=== PATIENT | male | born 1940 | race Caucasian/White ===

== ENCOUNTER → 2021-08-22 | Day surgery (SDC) | payer MEDICARE, OTHER ==
[~2021-08-22] MED LIST: ADULT ASPIRIN R81 MG PO; ALPHA LIPOIC AC50 M1 PO; BYSTOLIC10 MG PO; COQ-10100 MG PO; DHEA25 MG PO; ENDUR-ACIN500 MG PO; KLOR-CON 1010 MEQ PO; MAGNESIUM250 M1 PO; PERIDEX15 ML SWISH&SPIT; VISION VITAMIN1 EACH PO; VITAMIN D-40010 MCG PO; [UNRECOGNIZED DRUG - CODE] PO; [UNRECOGNIZED DRUG - OTHER] PO; [UNRECOGNIZED DRUG - OTHER] PO; [UNRECOGNIZED DRUG - OTHER] PO; [UNRECOGNIZED DRUG - OTHER] PO
--- NOTE | ~2021-08-22 | PROC ---
[address] [address] PROCEDURE REPORT Name: SALLY STREETER Room: [facility].#: [id number] Admission: 08/22/21 Attend Phys: Herbie Kirk DO Discharge: Date of : 40 Report #: [id number] THIS REPORT FOR: cc: DEAN CASTELLANOS MD Physician not on staff [facility],Medical Records Staff ~ For GI report, please see the Provation report in Perceptive 7 content. By: 0651Medical Records Staff JUSTIN /JOSELITO
[2021-08-22 09:21] LABS: HEMATOCRIT 43.8 % (42.0-52.0); HEMOGLOBIN 15.4 gm/dL (14.0-18.0); MCH 34.6 pg (26.0-34.0); MCHC 35.1 g/dL (28.0-37.0); MCV 98.7 fL (80.0-100.0); MPV 7.2 fl. (7.2-11.1); RBC 4.44 mil/uL (4.50-6.00); RDW-CV 12.9 % (10.5-14.5); WBC 4.6 thou/uL (4.0-11.0)
[2021-08-22 09:30] LABS: ANION GAP < 0 mmol/L (7-16); BUN 12 mg/dL (7-18); CALCIUM 9.4 mg/dL (8.5-10.1); CHLORIDE 99 mmol/L (98-107); CO2 28 mmol/L (21-32); GLUCOSE 95 mg/dL (70-99); POTASSIUM 3.7 mmol/L (3.5-5.1); SODIUM 126 mmol/L (136-145)
--- NOTE | 2021-08-22 12:26 | EKG ---
[place] [address] ELECTROCARDIOGRAM REPORT Name: SALLY STREETER Room: [facility]#: [id number] Admission: 08/22/21 Attend Phys: Herbie Kirk, Discharge: Date of : 40 Date of Service: 08/22/21930 Report #: [id number] THIS REPORT FOR: //name// [facility] Test Date: 2021-08-22 Test Time: 09:31:57 Pat Name: SALLY STREETER Department: Room: Gender: Flight Kitchen Manager: [facility] : 1940 Requested By: Amita Butt Order Number: [id number] Reading MD: Sally Cornejo Measurements Intervals [place] Rate: 63 P: [place]: QRS: -13 QRSD: 109 T: 30 QT: 398 QTc: 408 Interpretive Statements Atrial fibrillation Inferior infarct, old No previous ECG available for comparison Electronically Signed On 08-22-2021 12:26:12 CDT by Sally Cornejo [email or web address] <ELECTRONICALLY SIGNED> By: Sally Cornejo MD, [facility] 08/22/21 1226 0 0 Sally Cornejo MD, [facility] /EPI
--- NOTE | 2021-08-25 11:08 | PATH ---
[facility] [address] [place] [address] PATHOLOGY RPT PROCEDURE Name: SALLY STREETER MOIZ Room: [facility].#: [id number] Admission: 08/22/21 Date of : 40 Discharge: Report #: [id number] Path Case #: [id number] [facility] Accession Number: [id number] . 01 Material submitted: . PART A: cecum - CECAL POLYP PART B: colon - PROXIMAL TRANSVERSE COLON POLYP. Modifiers: proximal, transverse PART C: rectum - RECTAL POLYP . 01 Clinical history: . HISTORY OF COLON POLYPS . 02 Diagnosis: A. Cecal polyp: - Tubular adenoma, negative for high-grade dysplasia. . B. Proximal transverse colon polyp: - Tubular adenoma, negative for high-grade dysplasia. . C. Rectal polyp: - Tubular adenoma, negative for high-grade dysplasia. . (HILARIO:tom; 08/24/2021) [facility] 08/24/2021 1544 Local . 02 Electronically signed: . Juan C Dexter MD, Pathologist NPI- [id number] . 01 Gross description: . A. The specimen is received in formalin, labeled "Sally Streeter, cecal polyp". Received is a segment of pale rick tissue measuring 0.3 cm in maximum dimensions. The specimen is submitted entirely in cassette A1. . B. The specimen is received in formalin, labeled "Sally Streeter, proximal transverse colon polyp". Received are 2 segments of pale rick tissue ranging in size from 0.2 cm to 0.3 cm in maximum dimensions. The specimen is submitted entirely in cassette B1. . C. The specimen is received in formalin, labeled "Sally Streeter, rectal polyp". Received are 2 segments of pale rick tissue ranging in size from 0.2 to 0.4 cm in maximum dimensions. The specimen is submitted entirely in cassette C1.([facility]; 08/23/2021) [facility] 08/23/2021 Critical access hospital Local . 02 Pathologist provided ICD-10: D12.0, D12.3, D12.8 [place] [address] PATHOLOGY RPT PROCEDURE Name: SALLY STREETER Room: [facility]..#: [id number] Admission: 08/22/21 Date of : 40 Discharge: Report #: [id number] Path Case #: [id number] . 02 [facility] . [id number], [id number], [id number] Specimen Comment: A courtesy copy of this report has been sent to [phone], [phone] Specimen Comment: [phone] Specimen Comment: Report sent to / DR CASTELLANOS Performed at: [address] [facility] [address], [place], [place] [id number] MD Damaso Muro MD Phone: [phone] Performed at: [address] [facility] [address] [place] [place], [place] [id number] MD Juan C Dexter MD Phone: [phone]
== END | disposition home or self-care (01) ==
LOC: M.SUR 08:32
PROVIDERS: Anesthesiology; ATTEND Internal Medicine Gastroenterology
DX: Z12.11 Encounter for screening for malignant neoplasm of colon (principal); Z86.010 Personal history of colon polyps; D12.0 Benign neoplasm of cecum; D12.3 Benign neoplasm of transverse colon; D12.8 Benign neoplasm of rectum; K57.30 Diverticulosis of large intestine without perforation or abscess without bleeding; K64.4 Residual hemorrhoidal skin tags; I48.91 Unspecified atrial fibrillation; G47.30 Sleep apnea, unspecified; Z98.890 Other specified postprocedural states; Z79.899 Other long term (current) drug therapy; Z20.822 Contact with and (suspected) exposure to COVID-19